=== PATIENT | male | born 1990 | race Caucasian/White ===

== ENCOUNTER → 2021-02-27 18:17 | Outpatient (CLI) | payer BC ==
[2021-02-27 19:21] LABS: PROTEIN - BODY FLUID 4.8 G/DL
[2021-02-27 19:45] LABS: MESOTHELIALS BF 7 %; NEUT - BF 15 %
== END | disposition home or self-care (01) ==
LOC: D.LABREF 18:17
PROVIDERS: ATTEND Clinical Nurse Specialist Family Health
DX: M25.462 Effusion, left knee (principal)